=== PATIENT | female | born 1945 | race Caucasian/White ===

== ENCOUNTER 2018-12-04 08:40 | Observation (INO) ==
--- NOTE | 2018-12-04 09:06 | History & Physical Report ---
Date of Encounter: 12/04/18 Time of Encounter: 09:06 24 Hour HP Update - Instructions Instructions: If the History and Physical is less than 30 days old and was completed prior to A.M. admission and or procedure and has NOT been updated on calendar day of procedure please complete this update prior to performing procedure. - Update Patient reports changes in Medical Condition: No Changes in examination, assessment, or condition: No Changes in Medication: No Preop tests/diagnostics Reviewed: Yes Pre-Op MRSA Screen: Negative Surgery Remains Indicated: Yes Consent for Planned Operative Procedure(s) Verified: Yes - Pre-Operative Checklist Preoperative Checklist Indicated: Yes Prophylactic Antibiotic Ordered: Yes Home Medications Include Beta Melissa: No Beta Melissa Taken Today (Day of Surgery): No Beta Melissa Taken Yesterday (Day Prior to Surgery): No Is VTE Prophylaxis Indicated?: Yes
[2018-12-04] MEDS ORDERED: Albuterol 2.5 MG/3 ML NEBULIZER IH ONE (09:13)
[2018-12-04] MEDS: Ringers Solution, Lactated 1,000 ML IVC SCH (09:31)
[2018-12-04] MEDS ORDERED: Famotidine 20 MG/2 ML VIAL IVP ONE (09:31)
[2018-12-04] MEDS ORDERED: Gabapentin 300 MG CAPSULE PO ONE (09:32)
[2018-12-04] MEDS ORDERED: Acetaminophen IV 1,000 MG/100 ML INFUS..BTL IVPB ONE (09:32)
--- NOTE | 2018-12-04 09:50 | Anesthesia Evaluation PreOp ---
Date of Encounter: 12/04/18 Time of Encounter: 10:00 - Past History Planned Operation: Bronchoscopy Mediastinoscopy Power Port Cardiac History: HTN, Hyperlipidemia Pulmonary History: Smoker, COPD PROPERTY ADMINISTRATOR History: Other (Dementia) Other Medical History: Denies Any Significant HX Anesthesia History: No Prior Anesthetic Complications : No Alcohol Use: rarely Drug use: none Medications and Allergies Albuterol Sulfate [Albuterol Inhaler] 2 puff IH Q4H PRN 02/03/16 [History] Alendronate Sodium [Fosamax] 70 mg PO QWEEK 02/03/16 [History] Cholecalciferol (D-3) [Vitamin D] 1,000 unit PO DAILY 02/03/16 [History] Citalopram Hydrobromide [Citalopram HBr] 10 mg PO HS 02/03/16 [History] Fexofenadine HCl 180 mg PO DAILY 02/03/16 [History] Fluticasone Propionate Nasal [Flonase] 1 spray NS DAILY PRN 02/03/16 [History] Guaifenesin [Mucinex] 1,200 mg PO BID PRN 02/03/16 [History] Lisinopril [Zestril] 5 mg PO DAILY 02/03/16 [History] Montelukast [Singulair] 10 mg PO DAILY 02/03/16 [History] Simvastatin [Zocor] 20 mg PO HS 02/03/16 [History] Allergy/AdvReac Type Severity Reaction Status Date / Time No Known Allergies Allergy Verified 12/16/17 18:38 - Meds/Allergy Pre-op Review Medications Reviewed: Yes Allergies Reviewed: Yes Beta Blockers on Current Med List: No Anesthesia Results - Labs Laboratory Tests 12/03/18 12/03/18 11:03 11:03 Hgb 14.4 Hct 43.5 Plt Count 263 Sodium 136 Potassium 4.0 BUN 11 Creatinine 0.66 - Imaging EKG: report reviewed (SR) Anesthesia Exam O2 Sat Height 1.65 m Weight 67.585 kg O2 Sat by Pulse Oximetry 93 Vital Signs Temp Pulse Resp BP Pulse Ox 97.9 F 79 18 128/79 93 12/04/18 09:18 12/04/18 09:18 12/04/18 09:18 12/04/18 09:18 12/04/18 09:18 Height: 5'5 Weight: 149 lbs NPO (# of Hours): MN Pain Scale: 0 - HEENT Pupil (Motor): Pupils equal, EOMI Mallampati: III Denture Type: Upper: Complete Oral Opening: Less than or equal to 3 - PROPERTY ADMINISTRATOR LOC: Oriented PROPERTY ADMINISTRATOR Motor: Normal RUE, Normal LUE, Normal RLE, Normal LLE, Normal Face PROPERTY ADMINISTRATOR Sensory: Normal: RUE, LUE, RLE, LLE, Face - Cardiac Rhythm: Regular Murmur: None JVD: No Carotid Bruit: No - Pulmonary Breath Sounds: bilateral Clear Respiratory Effort: Symmetrical Anesthesia Assess/Plan ASA Score: 3 (HTN Tobacco COPD Dementia) Level of consciousness: Cooperative, Oriented Anesthetic Plan: General Monitoring Plan: Standard Monitors Recovery Plan: PACU (Discussed GA, agrees to proceed)
[2018-12-04] MEDS ORDERED: *HR* FentaNYL (PF) 100 MCG/2 ML VIAL ONE (11:01)
[2018-12-04] MEDS ORDERED: *HR* Propofol 200 MG/20 ML VIAL IVP ONE (11:06)
[2018-12-04] MEDS ORDERED: Lidocaine -MPF 2% 2 ML VIAL ONE (11:27)
[2018-12-04] MEDS ORDERED: Dexamethasone 4 MG/ML VIAL ONE (11:28)
[2018-12-04] MEDS ORDERED: *HR* Rocuronium Bromide 50 MG/5 ML VIAL ONE (11:28)
[2018-12-04] MEDS ORDERED: Ondansetron 4 MG/2 ML VIAL ONE (11:28)
[2018-12-04] MEDS ORDERED: *HR* EPINEPHrine 30 MG/30 ML MDV ONE (11:43)
[2018-12-04] MEDS ORDERED: *HR* Heparin 5,000 UNIT/ML VIAL ONE (11:43)
[2018-12-04] MEDS ORDERED: Lidocaine 1% 20 ML MDV ONE (11:43)
[2018-12-04] MEDS ORDERED: Ondansetron 4 MG/2 ML VIAL IVP ONE (12:17)
[2018-12-04] MEDS ORDERED: *HR* OxyCODONE Immed Rel 5 MG TABLET PO PRN (12:17)
[2018-12-04] MEDS ORDERED: *HR* Promethazine 25 MG/ML VIAL IVP PRN (12:17)
[2018-12-04] MEDS ORDERED: Neostigmine Methylsulfate 3 MG/3 ML SYRINGE ONE (12:57)
--- NOTE | 2018-12-04 13:25 | Discharge Summary ---
Orders not resulted at time of discharge: Pending orders 12/04/18 09:25 EKG [ECG 12 lead ECG] [ECG] Stat 12/04/18 12:46 Surgical Pathology [PTH] Stat 12/04/18 12:50 XR chest 1V portable [XR] Stat XR fluoro guide [XR] Routine 12/04/18 13:13 Surgical Pathology [PTH] Routine Date of Encounter: 12/04/18 Time of Encounter: 13:23 - Discharge Diagnosis (1) Cancer of upper lobe of right lung Priority: Primary Status: Acute - Hospital Course Hospital course: Ms. Blair is a 73 year old female - Time Spent with Patient Total time spent providing and/or coordinating discharge services: - Discharge Medications Prescriptions: No Action Montelukast [Singulair] 10 mg PO 1800 Simvastatin [Zocor] 20 mg PO HS Fexofenadine HCl 180 mg PO DAILY PRN PRN Reason: Allergy Symptoms Buspirone HCl [Buspar] 10 mg PO TID Citalopram [CeleXA] 20 mg PO QAM Cyanocobalamin (Vitamin B-12) [B-12] 1,000 mcg PO QAM Divalproex Sodium [Depakote Sprinkle] 125 mg PO BID Donepezil [Aricept] 10 mg PO HS Fluticasone Furoate [Arnuity Ellipta] 1 puff PO DAILY hydrOXYzine HCl [Hydroxyzine HCl] 25 - 50 mg PO QID PRN PRN Reason: Anxiety Losartan Potassium 25 mg PO QAM Memantine HCl 10 mg PO BID Mirtazapine [Remeron] 7.5 mg PO 1800 Quetiapine Fumarate [Seroquel] 12.5 mg PO HS Home Medications: Fexofenadine HCl 180 mg PO DAILY PRN 02/03/16 [History] Montelukast [Singulair] 10 mg PO 1800 02/03/16 [History] Simvastatin [Zocor] 20 mg PO HS 02/03/16 [History] Buspirone HCl [Buspar] 10 mg PO TID 12/04/18 [History] Citalopram [CeleXA] 20 mg PO QAM 12/04/18 [History] Cyanocobalamin (Vitamin B-12) [B-12] 1,000 mcg PO QAM 12/04/18 [History] Divalproex Sodium [Depakote Sprinkle] 125 mg PO BID 12/04/18 [History] Donepezil [Aricept] 10 mg PO HS 12/04/18 [History] Fluticasone Furoate [Arnuity Ellipta] 1 puff PO DAILY 12/04/18 [History] Losartan Potassium 25 mg PO QAM 12/04/18 [History] Memantine HCl 10 mg PO BID 12/04/18 [History] Mirtazapine [Remeron] 7.5 mg PO 1800 12/04/18 [History] Quetiapine Fumarate [Seroquel] 12.5 mg PO HS 12/04/18 [History] hydrOXYzine HCl [Hydroxyzine HCl] 25 - 50 mg PO QID PRN 12/04/18 [History] Allergies/Adverse Reactions: Allergy/AdvReac Type Severity Reaction Status Date / Time No Known Allergies Allergy Verified 12/04/18 09:54 Primary care physician: Teja Mcdonough MD Consults: none Procedure(s) Performed: mediastinoscopy, staging port with fluoro Discharging clinician: Manny Mccormick Anticipated date of discharge: 12/04/18 Physical Examination General: Conversant, No Apparent Distress HEENT: Atraumatic, Normocephaly Cardiac: Reg Rate and Rhythm, Normal S1 and S2 Lungs: Normal Breath Sounds Abdomen: Soft - Patient Status Disposition: Home, Self-Care Condition: Good Functional capacity at discharge: independent ambulation Overall status at discharge: patient is progressing back to baseline - Discharge Instructions Follow Up With: Teja Mcdonough MD [Primary Care Provider] - - Diet and Activity Activity: increase activity as tolerated Diet: regular diet Additional instructions: remove gauzes on sunday
--- NOTE | 2018-12-04 13:28 | Operative Note ---
Date of procedure: 12/04/18 Pre-op diagnosis: hilar mass Post-op diagnosis: other (c34.11) Procedure: mediastinoscopy, staging port with fluoro Complications: none Anesthesia: GETA Local Anesthetics: 0.5% Sensorcaine HCL SubQ (cc), 1% Lidocaine HCL SubQ (cc) Surgeon: Manny Mccormick Was there an cafe assistant present: No Estimated blood loss (cc): 5 Specimen: 2r Condition: stable Disposition: PACU Procedure in Detail: Patient was brought to the operating room and placed on the operating table in the supine position. With perioperative antibiotics and DVT prophylaxis on board, she was prepped and draped in the usual sterile fashion. The suprasternal incision was made with the Bovie with the #10 scalpel blade through the skin down of the subcutaneous tissues with the Bovie used to control hemostasis and to continue the dissection down to the trachea a finger and then the mediastinoscope introduced into the mediastinum and the lung cancer identify biopsy for staging and diagnostic purposes. Hemostasis was excellent intr aoperative frozen section demonstrated non-small cell lung cancer. Incision was closed with 2 layers of 3-0 Vicryl and a 4-0 Monocryl subcuticular stitch with dressings consisting of Steri-Strips and sterile gauze. Seldinger technique was used to access the left subclavian vein and under fluoroscopy a PowerPort floated into the right atrium connected to the reservoir port which was tacked to the pectoralis fashion with 3-0 Prolene suture. The incision was then closed with 0 Vicryl and a 4-0 Monocryl subcuticular stitch with dressings consisting of Steri-Strips and sterile gauze. The port was aspirated and flushed with heparinized saline without difficulty. Patient was extubated taken to the recovery room breathing spontaneously hemodynamically stable.
[2018-12-04] MEDS ORDERED: Naloxone 0.4 MG/ML INJ ONE (13:35)
[2018-12-04] MEDS ORDERED: *HR* Labetalol 20 MG/4 ML SYRINGE IVP ONE (13:50)
[2018-12-04] MEDS ORDERED: Ketorolac 15 MG/ML VIAL IVP ONE ×2 (15:55→16:15)
[2018-12-04] MEDS ORDERED: Ketorolac 30 MG/ML VIAL ONE (16:14)
--- NOTE | 2018-12-04 17:19 | Anesthesia Evaluation Post Op ---
Date of Encounter: 12/04/18 Time of Encounter: 17:20 - Vital Signs Vital Signs: Vital Signs/O2 Sat/Glucose, Most Current Temp Pulse Resp BP Pulse Ox 12/04/18 16:31 58 16 134/74 92 12/04/18 16:00 61 16 113/76 92 12/04/18 15:31 61 16 125/67 92 12/04/18 15:00 63 16 104/58 91 12/04/18 14:28 96.6 F L 65 16 101/66 91 12/04/18 14:14 97.0 F L 68 20 117/68 93 12/04/18 14:04 69 20 133/80 93 12/04/18 13:54 80 20 148/90 93 12/04/18 13:44 98.2 F 105 20 170/107 99 - Lungs Lungs: Clear Ascult./Percussion - Airway Airway: Non-obstructed - Cardiovascular Regular Rate - Mental Status Mental Status: Alert & Oriented, Answers Appropriately - Pain Pain Scale: 3 - Nausea Vomiting Nausea Vomiting: Not Present - Hydration Hydration: Tolerates oral liquids - Discharge PostOp Status: Transfer Patient to floor
[2018-12-04] MEDS ORDERED: traMADol 50 MG TABLET PO PRN (17:28)
[2018-12-05] MEDS: Ringers Solution, Lactated 1,000 ML IVC SCH (05:35)
--- NOTE | 2018-12-05 09:12 | Cardiothoracic Progress Note ---
Date of Encounter: 12/05/18 Time of Encounter: 09:09 - Assessment and plan (1) Cancer of upper lobe of right lung Current Visit: Yes Status: Acute The assessment and plan as outlined above was discussed with the patient and/or family members who expressed understanding and agreement. All questions were answered. The patient will require home oxygen when she is discharged. This cannot be set up today as today is a holiday. She also cannot get a ride today. We will plan to set up home oxygen tomorrow and discharge her to home. - Subjective Interval history: The patient had mediastinoscopy yesterday and was placed on observation due to sleepiness. This morning she has no complaints and is eating her breakfast. Vital Signs, Last 4 Hours Temp Pulse Resp BP Pulse Ox 12/05/18 07:10 97.6 F 67 15 124/61 92 Oxgyen Flow Rate Oxygen Flow Rate (LPM) 2 Clinical Data, last 8 Hours Output, Urine Amount 500 Weight 12/03/18 12/04/18 12/05/18 23:59 23:59 23:59 Weight 67.585 kg 68 kg Lungs are clear to percussion and auscultation. Heart is in a regular rate and rhythm. All incisions are healing well without signs of infection. Consult Discharge Plan - Plan Instructions: Implanted Venous Access Port (DC), Mediastinoscopy (DC), How to Care for Your Implanted Venous Access Port (DC) Additional Instructions: - Diet and Activity Activity: increase activity as tolerated Diet: regular diet Additional instructions: remove gauzes on sunday Home Medication List * You have been given a list of your current medications. If you have changes in your medications, update your list. * Provide a list of current medications to your primary care physician. * Carry a copy of your current medications with you in case of an emergency. Follow Up Appointment * Please call your surgeon's office within 24 hours or next business day to schedule a follow up appointment. ANY QUESTIONS OR CONCERNS CALL OFFICE [phone] Referrals: Teja Mcdonough MD [Primary Care Provider] -
[2018-12-05 12:26] VITALS: BP 115/64
--- NOTE | 2018-12-05 13:14 | Event Note ---
Date of Encounter: 12/05/18 Time of Encounter: 13:13 I was told this morning that the patient could not be discharged because she did not have a ride and home oxygen could not be set up on a holiday. Apparently, the son has arrived and wishes to take his mother home. It is possible to set up home oxygen on a holiday according to the social media intern.
--- NOTE | 2018-12-06 15:53 | Electrocardiograph Report ---
[address] [place], [place] [address] Test Date: 2018-12-04 Pat Name: May Blair Department: 106 Room: 3B24 Gender: F Bureau Director: : 1945 Requested By: Yonatan Thompson Order Number: [id number] Reading MD: America Torres Measurements Intervals [place] Rate: 57 P: 65 [place]: 190 QRS: 46 QRSD: 81 T: 59 QT: 439 QTc: 433 Interpretive Statements SINUS BRADYCARDIA Electronically Signed On 12-06-2018 15:51:38 EDT by America Torres
--- NOTE | 2018-12-06 15:58 | Electrocardiograph Report ---
[address] [place], [place] [address] Test Date: 2018-12-04 Pat Name: May Blair Department: 106 Room: 3B24 Gender: F Combat Control: ROSALIA : 1945 Requested By: Manny Mccormick Order Number: [id number] Reading MD: America Torres Measurements Intervals [place] Rate: 78 P: 42 [place]: 169 QRS: 55 QRSD: 77 T: 57 QT: 365 QTc: 399 Interpretive Statements SINUS RHYTHM Electronically Signed On 12-06-2018 15:56:40 EDT by America Torres
== END 2018-12-05 15:01 | disposition other institution (70) ==
LOC: SAMDAY 08:40 → 3BNU 08:40
PROVIDERS: ADMIT Thoracic Surgery (Cardiothoracic Vascular Surgery); ATTEND Thoracic Surgery (Cardiothoracic Vascular Surgery)